=== PATIENT | female | born 1990 | race Caucasian/White ===

== ENCOUNTER 2017-07-11 01:22 | Emergency (ER) | payer SELFPAY ==
[~2017-07-11] VITALS: Ht 162.6 cm; Wt 56.8 kg
[2017-07-11 01:25] VITALS: TEMP 36.4; Ht 162.6 cm; Wt 56.8 kg
[2017-07-11] MEDS ORDERED: LIDOCAINE HCL 2% VISC SOLN 20 ML UDC PO STA (01:45)
[2017-07-11] MEDS ORDERED: ALUMINUM/MAGNESIUM SUSP 30 ML UDC PO STA (01:45)
[2017-07-11 01:51] VITALS: O2SAT 99
[2017-07-11 01:58] LABS: BASO % 0.4 %; BASO ABS # 0.04 K/uL (0-0.2); EOS % 1.6 %; EOS ABS # 0.15 K/uL (0-0.5); HEMATOCRIT 42.3 % (37-47); HEMOGLOBIN 15.7 g/dL (12.0-16.0); IG# 0.02 K/uL (0.00-0.02); LYMPH % 36.4 %; LYMPH ABS # 3.37 K/uL (1.2-3.4); MEAN CELL VOLUME 86.7 fL (80-100); MEAN CORPUSCULAR HEMOGLOBIN 32.2 pg (25-34); MEAN CORPUSCULAR HGB CONC 37.1 g/dl (32-36); MEAN PLATELET VOLUME 9.5 fL (7.4-10.4); MONO % 9.8 %; MONO ABS # 0.91 K/uL (0.11-0.59); NEUT % 51.6 %; NEUT ABS # 4.76 K/uL (1.4-6.5); PLATELET COUNT 287 K/uL (130-400); RED CELL DISTRIBUTION WIDTH CV 12.3 % (11.5-14.5); RED CELL DISTRIBUTION WIDTH SD 39.4 fL (36.4-46.3); WHITE BLOOD COUNT 9.25 K/uL (4.8-10.8)
[2017-07-11 02:05] LABS: ISTAT CREATININE 0.7 mg/dl (0.6-1.3); ISTAT IONIZED CALCIUM 1.18 mmol/l (1.12-1.32); ISTAT POTASSIUM 3.6 mEq/L (3.3-5.0)
[2017-07-11 02:20] LABS: ALBUMIN 4.1 gm/dl (3.4-5.0); CALCIUM 9.2 mg/dl (8.5-10.1); CREATININE 0.79 mg/dl (0.60-1.20); POTASSIUM 3.5 mmol/L (3.5-5.1)
[2017-07-11 02:23] LABS: TOTAL PROTEIN 8.3 gm/dl (6.4-8.2)
[2017-07-11] MEDS ORDERED: SUCRALFATE 1 GM/10 ML UDC PO STA (02:34)
[2017-07-11] MEDS ORDERED: PANTOprazole SOD 40 MG TAB PO STA (03:04)
[2017-07-11] MEDS ORDERED: PANT40TA PO (03:06)
--- NOTE | 2017-07-11 03:13 | EMERGENCY ROOM VISIT NOTE ---
History First contact with patient: 01:31 Chief Complaint: ABDOMINAL PAIN Stated Complaint: PAIN IN UPR ABOMEN AND BETWEEN SHOULDER BLADES Nursing Triage Summary: patient states around 1800 yesterday she developed bilateral should pain that then radiated toward her abdomen. patient states abdominal pain has worsened. denies any nausea/vomit. History of Present Illness The patient is a 27 year old female who presents to the Emergency Room with complaints of intermittent episodes of epigastric abdominal pain and mid back pain for the past few months described as discomfort, 6 out of 10. Patient drinks a lot of red bull. She smokes. Patient states she had sausage and fried potatoes last night for dinner. Patient states nothing makes it better or worse. Patient denies dyspnea, fever, chills, nausea, vomiting, diarrhea, black or blood in her stool, flank pain, urinary symptoms. No control. No recent travel. Review of Systems An 10 system review of systems was completed with positives and pertinent negatives listed in the HPI. Past Medical/Surgical History Medical Problems: (1) Idiopathic Scoliosis (2) Tobacco Use Disorder Surgical Problems: (1) History of delivery Family History Patient reports no known family medical history. Social History Smoking Status: Current Every Day Smoker Alcohol Use: none Drug Use: none Marital Status: in relationship Occupation Status: employed Current/Historical Medications Scheduled Pantoprazole (Protonix), 40 MG PO DAILY Physical Exam Vital Signs Date Time Temp Pulse Resp B/P (MAP) Pulse Ox O2 Delivery O2 Flow Rate FiO2 07/11/17 02:34 72 20 104/71 97 Room Air 07/11/17 01:51 99 Room Air 07/11/17 01:51 99 Room Air 07/11/17 01:25 36.4 99 20 112/63 100 Room Air Physical Exam VITALS: Vitals are noted on the nurse's note and reviewed by myself. Vital signs stable. GENERAL: Pleasant female, in no acute distress, nondiaphoretic, well-developed well-nourished. SKIN: The skin was without rashes, erythema, edema, or bruising. There is no tenting of the skin. Capillary reflex less than 2 seconds. HEAD: Normocephalic atraumatic. EARS: External auditory canals clear, tympanic membranes pearly zurita without erythema or effusion bilaterally. EYES: Pupils equal round and reactive to light and accommodation. Conjunctivae without injection, sclerae without icterus. Extraocular movements intact. NOSE: Patent, turbinates without inflammation or discharge. MOUTH: Mucous membranes moist. Pharynx without erythema or exudate. Uvula midline. Airway patent. Tongue does not deviate. NECK: Supple without nuchal rigidity. No JVD. HEART: Regular rate and rhythm without murmurs gallops or rubs. LUNGS: Clear to auscultation bilaterally without wheezes, rales or rhonchi. No dullness to percussion. No retractions or accessory muscle use. ABDOMEN: Positive bowel sounds x 4. Normal tympanic percussion. Soft, minimally tender epigastric region, no CVA tenderness, without masses or organomegaly. Mason sign negative. No guarding or rebound tenderness. MUSCULOSKELETAL: No muscle atrophy, erythema, or edema noted. NEURO: Patient was alert and oriented to person place and time. No focal neurological deficits. Medical Decision & Procedures Laboratory Results 07/11/17 01:30 Red Blood Count 4.88, Mean Corpuscular Volume 86.7, Mean Corpuscular Hemoglobin 32.2, Mean Corpuscular Hemoglobin Concent 37.1, Mean Platelet Volume 9.5, Neutrophils (%) (Auto) 51.6, Lymphocytes (%) (Auto) 36.4, Monocytes (%) (Auto) 9.8, Eosinophils (%) (Auto) 1.6, Basophils (%) (Auto) 0.4, Neutrophils # (Auto) 4.76, Lymphocytes # (Auto) 3.37, Monocytes # (Auto) 0.91, Eosinophils # (Auto) 0.15, Basophils # (Auto) 0.04 07/11/17 01:30 Test 07/11/17 01:30 07/11/17 01:49 07/11/17 01:52 White Blood Count 9.25 K/uL (4.8-10.8) Red Blood Count 4.88 M/uL (4.2-5.4) Hemoglobin 15.7 g/dL (12.0-16.0) Hematocrit 42.3 % (37-47) Mean Corpuscular Volume 86.7 fL (80-100) Mean Corpuscular Hemoglobin 32.2 pg (25-34) Mean Corpuscular Hemoglobin Concent 37.1 g/dl (32-36) Platelet Count 287 K/uL (130-400) Mean Platelet Volume 9.5 fL (7.4-10.4) Neutrophils (%) (Auto) 51.6 % Lymphocytes (%) (Auto) 36.4 % Monocytes (%) (Auto) 9.8 % Eosinophils (%) (Auto) 1.6 % Basophils (%) (Auto) 0.4 % Neutrophils # (Auto) 4.76 K/uL (1.4-6.5) Lymphocytes # (Auto) 3.37 K/uL (1.2-3.4) Monocytes # (Auto) 0.91 K/uL (0.11-0.59) Eosinophils # (Auto) 0.15 K/uL (0-0.5) Basophils # (Auto) 0.04 K/uL (0-0.2) RDW Standard Deviation 39.4 fL (36.4-46.3) RDW Coefficient of Variation 12.3 % (11.5-14.5) Immature Granulocyte % (Auto) 0.2 % Immature Granulocyte # (Auto) 0.02 K/uL (0.00-0.02) Est Creatinine Clear Calc Drug Dose 93.2 ml/min Estimated GFR () 119.7 Estimated GFR (Non- 103.3 BUN/Creatinine Ratio 14.7 (10-20) Calcium Level 9.2 mg/dl (8.5-10.1) Total Bilirubin 0.4 mg/dl (0.2-1) Direct Bilirubin 0.1 mg/dl (0-0.2) Aspartate Amino Transf (AST/SGOT) 12 U/L (15-37) Alanine Aminotransferase (ALT/SGPT) 20 U/L (12-78) Alkaline Phosphatase 85 U/L (45-117) Total Protein 8.3 gm/dl (6.4-8.2) Albumin 4.1 gm/dl (3.4-5.0) Lipase 155 U/L (73-393) Human Chorionic Gonadotropin, Qual NEG (NEG) Bedside D-Dimer 180 ng/mlFEU (0-450) Bedside Troponin I < 0.030 ng/ml (0-0.045) Bedside Hemoglobin 16.0 g/dl (12.0-16.0) Bedside Hematocrit 47 % (37-47) Bedside Sodium 144 mEq/L (135-144) Bedside Potassium 3.6 mEq/L (3.3-5.0) Bedside Chloride 104 mEq/L (101-112) Bedside Total CO2 27 mEq/l (24-31) Anion Gap 18.0 mmol/L (16-25) Bedside Blood Urea Nitrogen 12 mg/dl (7-18) Bedside Creatinine 0.7 mg/dl (0.6-1.3) Bedside Glucose (other) 98 mg/dl (70-99) Bedside Ionized Calcium (Tierra) 1.18 mmol/l (1.12-1.32) Medications Administered Medications (Trade) Dose Ordered Sig/Zacarias Route Start Time Stop Time Status Last Admin Dose Admin Lidocaine HCl (Viscous Lidocaine 2% Soln) 10 ml NOW STAT PO 07/11/17 01:45 07/11/17 01:46 DC 07/11/17 01:45 10 ML Al Hydroxide/Mg Hydroxide (Maalox Susp) 30 ml NOW STAT PO 07/11/17 01:45 07/11/17 01:46 DC 07/11/17 01:45 30 ML Sucralfate (Carafate Susp) 1 gm NOW STAT PO 07/11/17 02:34 07/11/17 02:35 DC 07/11/17 02:56 1 GM ED Course Prior records/ancillary studies reviewed. Triage Nursing notes reviewed. Additional history obtained from friend. The patient's history was concerning for epigastric abdominal pain. Differential diagnosis: Etiologies such as appendicitis, PE, cardiac, diverticulitis, PUD, biliary pathology, UTI, pancreatitis, obstruction, mesenteric ischemia, aortic pathology , infections, inflammatory bowel disease, renal colic, as well as others were entertained. Physical examination findings: As above. ER treatment provided: GI cocktail, Carafate On reassessment the patient felt better. Diagnostics interpreted by me: ECG: Normal sinus, normal intervals, no acute ST-T wave changes. Impression normal sinus rhythm and treated by myself The labs revealed negative d-dimer. Negative troponin. Negative hCG. Stable H &H Imaging studies: Chest x-ray with no acute consolidation, pneumothorax free of my interpretation Exam and history seem consistent with epigastric discomfort most likely related to gastritis. Patient felt much better after being medicated as above. She has had several episodes in the past. She drinks a lot of red bull. She smokes. She was advised to take medicines as directed and to follow-up family care in a few days or here in the ER sooner for abdominal pain, chest pain, difficulty breathing, worsening sinus symptoms or as needed. Patient had a normal EKG. A negative troponin. A negative d-dimer. She was advised to see GI if symptoms persist after taking the PPI for 2 weeks for rule out ulcer or H. pylori infection or any other worsening signs or symptoms. By the evaluation outlined above emergent etiologies such as appendicitis, diverticulitis, PUD, biliary pathology, UTI, pancreatitis, obstruction, mesenteric ischemia, aortic pathology, infections, inflammatory bowel disease, renal colic, as well as others were deemed relatively unlikely. The pt informed about the findings as listed above. All questions were answered and pleased with the treatment. Return instructions were outlined and the patient was discharged in stable condition. Outpatient prescription management: Protonix Referral: The patient was referred back to their primary care physician for follow-up in 2 to 3 days for a recheck of the current condition. Case reviewed with my Attending. 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 Additional Instructions Protonix 40 m tablet daily for next 2 weeks. Take this on an empty stomach. Try Maalox or Zantac for breakthrough symptoms for reflux. Avoid large meals. Avoid acidic foods. Rest and drink plenty of fluids as tolerated. Continue current medications. Avoid strenuous activities and anything that worsens your pain. Resume normal activities once your symptoms resolve. Return to the ER immediately for worsening or persistent chest pain, abdominal pain, black or blood in your stools, vomiting, fevers, chest pains, difficulty breathing, worsening of your condition, or as needed. Follow up with your primary physician in 2-3 days for a recheck of your current condition. Work Instructions Return To Work: 2 days
[2017-07-11 03:23] VITALS: BP 105/72; PULSE 75; O2SAT 99
--- NOTE | 2017-07-11 07:06 | DIAGNOSTIC IMAGING REPORT ---
SINGLE VIEW CHEST CLINICAL HISTORY: Epigastric abdominal pain. Atypical chest pain. FINDINGS: An AP, portable, upright chest radiograph is compared to study dated 01/22/2016. The examination is degraded by portable technique and patient rotation. The cardiomediastinal silhouette is unremarkable. The lungs and pleural spaces are clear. No pneumothorax is seen. The bony thorax is grossly intact. IMPRESSION: No active disease in the chest. Electronically signed by: Ramiro Jurado M.D. 07/11/2017 7:05 AM Dictated Date/Time: 07/11/2017 7:05 AM
== END 2017-07-11 03:26 | disposition home or self-care (01) ==
LOC: C.EDB 01:23 → C.EDA 03:26
DX: R10.13 Epigastric pain (principal); M41.20 Other idiopathic scoliosis, site unspecified; F17.200 Nicotine dependence, unspecified, uncomplicated

== ENCOUNTER 2024-07-08 21:03 | Inpatient (IN) ==
[2024-07-08] MEDS: LACTATED RINGER'S 1,000 ML IV ONE (22:13)
[2024-07-08] MEDS: LACTATED RINGER'S 1,000 ML IV SCH (23:14)
--- NOTE | 2024-07-08 23:20 | History & Physical Report ---
Date of Service July 08, 2024 Assessment & Plan (1) Uterine contractions: (2) Gestational diabetes, diet controlled: (3) Previous delivery affecting : (4) Request for sterilization: Plan 34 yo at 38 5/7 wga presents in early labor VSS Fetus cat 1 Labor - Discussed indications, risks, benefits, alternatives with risks including infection, bleeding, injury to adjacent structures (bowel, bladder, ureters, blood vessels, nerves, baby), possible need for blood transfusion and/or life saving hysterectomy, VTE. Consent reviewed in detail w/ pt and signed after all questions answered to her satisfaction. Discussed specific risk of regret with tubal ligation and pt desires to proceed. -will order ancef and azithro for antibx History of Present Illness Chief Complaint: ctx Primary Care Provider: Ry Urbina, 34 yo at 38 5/7 wga presented w/ ctx increasing in frequency and intensity. q5-6 min on arrival and painful. She was given IVF which decreased frequency but intensity continued to worsen. 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 G2 2011 30 wks rCS G3 current denies hx stis Allergies Allergy/AdvReac Type Severity Reaction Status Date / Time codeine AdvReac Intermediate Severe Verified 07/03/24 07:31 Nausea and Vomiting hydrocodone AdvReac Intermediate Vomiting Verified 07/07/24 15:10 Home Medications Medication Instructions Recorded Confirmed Type sertraline 100 mg tablet 100 mg PO HS 07/03/24 07/08/24 History vits no.124-ferrous fum 1 tab DAILY 07/08/24 07/08/24 History 27 mg iron-folic acid 800 mcg tablet ( Vitamin) Patient History Medical History (Updated 07/08/24 @ 23:17 by Lenora Fajardo MD) History of chicken pox As child Gestational diabetes, diet controlled (04/2024) Failed 1hr, declines 2hr, accepts dx History of palpitations (2020) s/p unremarkable holtor monitor x 1 week occasoinal (monthly) palpitations Abnormal Pap smear of cervix Vitamin D deficiency Anxiety and depression Idiopathic scoliosis Surgical History History of delivery x2 Family History Mother Diabetes Hypertension Stroke Aunt Diabetes Hypertension Uncle Diabetes Hypertension Myocardial infarction, Onset Age: 49 Grandmother (Maternal) Diabetes Hypertension Grandfather (Maternal) Myocardial infarction, Onset Age: 50 Hypertension Brother Myocardial infarction, Onset Age: 26 Hypertension Denies family history of Ovarian cancer Prostate cancer Breast cancer Colorectal cancer Social History Smoking Status: Current every day smoker Tobacco Type: E-cigarettes / Vaping Cigarettes Per Day: vapes daily (advised); Second Hand Exposure: No; Do You Dip or Chew Tobacco: No; Tobacco Cessation Education Requested by Patient: No Hx Alcohol Use: No Hx Substance Use: No Preferred Language: Kuwaiti Communication Ability: Effective Visual Impairment: Limited 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 Beliefs That Will Affect Care: None marital status: marital status details: REX Padilla (22) [phone] Current Living Situation: Family and Significant Other Current Living Situation Comment: 15 and 12 year old sons and FOB current occupational status: employed current occupation: [employer] How many Children do You have: 2 Other Information That Helps Us Care for You: No Feels Safe at Home: Yes Safety Concerns: Feels Safe At This Time caffeine: Yes (redbull) Dental Care, Regularly: Yes Physical Activity Frequency: Daily Physical Activity Frequency Comment: working Seatbelt Use: always Sunscreen Use: No Assistive Devices: None Physical Exam Genitourinary: OB Exam Monitor Tracing: + external FHT monitor used, + external uterine monitor used (q3-6) and + category I (130/mod/-accel/-decel) Results & Data Vital Signs (Past 12 Hours) Vital Signs Temp Pulse Resp BP 07/08/24 21:27 81 07/08/24 21:27 124/79 07/08/24 21:21 98.1 F 18 07/08/24 21:18 83 151/73 H Laboratory Results OB Labs: Blood Type O Negative 12/18/23 Antibody Screen NEGATIVE 04/30/24 Hgb 11.3 g/dl (12.0-16.0) L 05/23/24 Hct 31.2 % (37.0-47.0) L 05/23/24 MCV 84.6 fL (80.0-100.0) 05/23/24 Plt Count 284 K/uL (130-400) 05/23/24 Rubella IgG Antibody Immune (Immune) 12/18/23 Treponema pallidum Ab Negative (Negative) 04/30/24 Hep Bs Antigen Negative (Negative) 12/18/23 Hepatitis C Antibody Negative (Negative) 12/18/23 HIV 1&2 Ab/P24 Ag 4thGn Negative (Negative) 12/18/23 Glucose 1 Hr 50 gm 183 mg/dl (70-130) H 01/30/24 Maternal Serum AFP 35.7 ng/mL 01/30/24 OB Optional Labs: Chlamydia trachomatis RNA Not Detected (NotDetected) 12/18/23 Neisseria gonorrhoeae RNA Not Detected (NotDetected) 12/18/23 Thyroid Stimulating Hormone (TSH) 0.793 uIu/ml (0.300-4.500) 02/20/21 Alpha Fetoprotein Triple Screen SEE NOTE 01/30/24 Labs Reviewed: neg horizon--[facility] low risk panorama--[facility] gbs neg Diagnostic Findings 06/18 EFW 49%, AC 45%, DVP wnl, L lat plac Coding Level of Care Code None Diagnoses Uterine contractions O47.9 Gestational diabetes, diet controlled O24.410 Previous delivery affecting O34.219 Request for sterilization Z30.2
[2024-07-08] MEDS ORDERED: AZITHROMYCIN 500 MG in SODIUM CHLORIDE 0.9% 250 ML IV SCH (23:31)
[2024-07-08] MEDS ORDERED: SODIUM CHLORIDE 0.9% 100 ML IV PRN (23:42)
[2024-07-08] MEDS ORDERED: SODIUM CHLORIDE 0.9% 50 ML IV PRN (23:42)
[2024-07-08] MEDS: ACETAMINOPHEN 500 MG TAB PO ONE (23:51)
[2024-07-08] MEDS: AZITHROMYCIN 250 MG TAB PO STA (23:57)
[2024-07-09] LABS: Hematocrit (blood only) 34.9 % (37.0-47.0); Mean Corpuscular Hgb Conc 34.4 g/dL (32.0-36.0); Mean Corpuscular Volume 81.4 fL (80.0-100.0); Mean Platelet Volume 9.3 fL (9.4-12.4); Platelet Count 255 K/uL (130-400); RDW Coefficient of Variation 13.7 % (11.5-14.5); RDW Standard Deviation 39.8 fL (36.4-46.3); Red Blood Count 4.29 M/uL (4.20-5.40); White Blood Count 10.07 K/ul (4.8-10.8)
[2024-07-09] MEDS: ACETAMINOPHEN 325 MG TAB ONE (00:02)
[2024-07-09] MEDS: CITRIC ACID/SODIUM CITRATE 15 ML UDC ONE (00:03)
--- NOTE | 2024-07-09 00:21 | Anesthesiology Consultation ---
Date of Service July 09, 2024 Assessment & Plan Chart Review Chart Review: Acceptable Risk for Surgery and Patient NOT seen in Pre Admission Testing Consults Requested none ASA ASA2 Proposed Anesthesia Anesthesia Type: Spinal (+intrathecal narcotics) Risk / Benefits Reviewed With: PT / POA / Parent / Guardian, Accepts Plan and Informed Consent Obtained History Surgery Operation Date: 07/08/24 23:20 Proposed Procedures p Section in LD - Lenora Fajardo MD Height/Weight Height: 5 ft 5 in Weight: 74.389 kg Allergies Allergy/AdvReac Type Severity Reaction Status Date / Time codeine AdvReac Intermediate Severe Verified 07/03/24 07:31 Nausea and Vomiting hydrocodone AdvReac Intermediate Vomiting Verified 07/07/24 15:10 Medications Home Medications Medication Instructions Recorded Confirmed Last Taken sertraline 100 mg tablet 100 mg PO HS 07/03/24 07/08/24 07/07/24 22:00 vits no.124-ferrous fum 1 tab DAILY 07/08/24 07/08/24 Unknown 27 mg iron-folic acid 800 mcg tablet ( Vitamin) Active Medications Generic Name Dose Route Start Last Admin Trade Name Freq PRN Reason Stop Dose Admin Lactated Ringer's 1,000 mls @ 125 mls/hr 07/09/24 00:15 07/08/24 23:14 Lr IV 07/09/24 23:08 125 mls/hr .Q8H JAVED Administration NPO Date Last Intake of Fluids: 07/08/24 Time Last Intake of Fluids: 22:00 Date Last Intake of Solids: 07/08/24 Time Last Intake of Solids: 13:00 Past Medical History Medical History (Updated 07/08/24 @ 23:17 by Lenora Fajardo MD) History of chicken pox As child Gestational diabetes, diet controlled (04/2024) Failed 1hr, declines 2hr, accepts dx History of palpitations (2020) s/p unremarkable holtor monitor x 1 week occasoinal (monthly) palpitations Abnormal Pap smear of cervix Vitamin D deficiency Anxiety and depression Idiopathic scoliosis Exercise / Class Metabolic Activity II 4-5 Yardwork/Stairs/Walk up hill Past Family History Family History Mother Diabetes Hypertension Stroke Aunt Diabetes Hypertension Uncle Diabetes Hypertension Myocardial infarction, Onset Age: 49 Grandmother (Maternal) Diabetes Hypertension Grandfather (Maternal) Myocardial infarction, Onset Age: 50 Hypertension Brother Myocardial infarction, Onset Age: 26 Hypertension Denies family history of Ovarian cancer Prostate cancer Breast cancer Colorectal cancer Past Surgical History Surgical History History of delivery x2 Past Anesthesia History No Hx of Anesthesia Complications and No Family Hx of Anesthesia Complications History of PONV No Hx of PONV and No Hx of Motion Sickness Social History Smoking Status: Current every day smoker Smoking cigarettes per day: vapes daily (advised) Do You Dip or Chew Tobacco: No Hx Alcohol Use: No Hx Substance Use: No substance use type: does not use Physical Exam Vital Signs Last Vital Signs Temp 36.7 C 07/08/24 23:55 Pulse 85 07/09/24 00:06 Resp 18 07/08/24 21:21 BP 112/56 L 07/09/24 00:06 ENMT Mouth: no dentition abnormality Thyromental Distance: > or= 3.5 Finger Breadths Mallampati Class: II Neck normal visual inspection Respiratory normal respiratory effort Auscultation: lungs clear to auscultation bilaterally Cardiovascular Rate/Rhythm: regular rate and regular rhythm Psychiatric Orientation: alert Testing Laboratory Results 07/08/24 23:32 07/08/24 22:05 POC Glucose 100 H
[2024-07-09] MEDS: CITRIC ACID/SODIUM CITRATE 15 ML UDC PO SCH (00:24)
[2024-07-09] MEDS: ceFAZolin 2000MG 2,000 MG/15 ML SYR IV ONE (00:26)
[2024-07-09] MEDS ORDERED: MoRPHine SULFATE PF 1 MG/ML 10 ML AMP/VIAL ONE (00:28)
[2024-07-09] MEDS ORDERED: OXYTOCIN 10 UNITS/ML VIAL ONE ×3 (00:52→01:02)
[2024-07-09] MEDS ORDERED: PHENYLEPHRINE HCL 10 MG/ML VIAL ONE (01:02)
[2024-07-09] MEDS ORDERED: ONDANSETRON INJ 2 MG/ML 2 ML VIAL ONE (01:02)
[2024-07-09] MEDS: LACTATED RINGER'S 1,000 ML IV SCH (01:25)
--- NOTE | 2024-07-09 02:07 | Operative Report ---
Post Operative Report Pre & Post Diagnosis Operation Date: 07/08/24 23:20 Pre-Op Diagnosis: Single intrauterine at 38 6/7 wga Labor CSx2 Desires sterilization A1GDM Post-Op Diagnosis: same Delivered I identified the patient and participated in the time-out.: Yes Procedure Operation Date: 07/08/24 23:20 Actual Procedures p Repeat Low Transverse Section, Bilateral Salpingectomy in LD - Lenora Fajardo MD Surgeon Lenora Fajardo MD Supervisor Ride Assembly PRATEEK Bro Quantitative Blood Loss (QBL) 450 Findings Consistent with Post-Op Diagnosis Normal appearing uterus, bilateral fallopian tubes and ovaries. Viable female with APGARs of 7 and 9 Fluids UOP 200cc by arias catheter Specimens Placenta, cord blood Drains Arias draining clear urine Anesthesia Type Spinal Complications none Disposition Accompanied Patient To Recovery: Yes Disposition: L&D Indications 34 yo at 38 6/7 wga presented with contractions and found to be in early labor. Decision was made to proceed with delivery and she desired permanent sterilization Description of Procedure The patient was taken to the operating room after consents were ensured. The patient was properly identified. Spinal anesthesia was obtained without d ifficulty. The patient was placed in a dorsal supine position with left lateral tilt, then prepped and draped in normal sterile fashion. Surgical time out was performed. Antibiotics were given for prophylaxis. Anesthesia was tested to ensure adequate surgical levels. Pfannenstiel skin incision was performed and carried down to the underlying fascia with a knife. The fascia was then nicked in the midline and extended laterally with pickups and Shepard scissors. Superior portion of the fascia was grasped with Kochers x2 and elevated off the underlying rectus muscles using blunt dissection. Inferior portion of the fascia was then grasped with Pablo clamps x2 and also elevated off the underlying muscles with blunt dissection. Midline was identified. The peritoneum was then entered and extended to provide adequate room for delivery of baby. A hand was inserted into the abdomen, uterus was noted to be clear of adhesions. Bladder blade was inserted, bladder flap was created in the usual fashion. A low transverse uterine incision was made in the uterus and extended bluntly in a superior to inferior fashion. Amniotomy was made with clear fluid at the time of rupture. head was grasped and elevated through the hysterotomy in an atraumatic fashion. The baby delivered in CAITY position, nuchal cord was reduced. Remainder of the body delivered without incident. Nose and mouth were bulb suctioned on the surgical field. The cord was double clamped and cut, baby was handed off to awaiting pediatrics staff. Cord segment and blood were obtained. Placenta was then expressed from the uterus. The uterus was exteriorized. Several passes were made inside the uterus to remove the remaining membranes. Attention was then turned to the hysterotomy, which was then closed with a running locked suture of 0 Vicryl on a CTX needle. An imbricating layer was then performed using 0-Monocryl. There was noted to be good hemostasis. The posterior cul-de-sac was then inspected and cleaned of clot and debris. The hysterotomy was again inspected and noted to be hemostatic. Attention was turned to sterilization portion of procedure. Right fallopian tube was followed out to fimbriated end. Ligasure device was used to excise tube to cornua and handed off for pathology. There was excellent hemostasis. The same procedure was performed on the contralateral side. Both tubal sites and hysterotomy were again hemostatic. The uterus was returned to the abdomen. The right and left pericolic gutters were cleaned of all clot and debris. The hysterotomy was again noted to be hemostatic. Tubal sites hemostatic. Space of Retzius was noted to be hemostatic. The fascia was then closed with a running suture of 0 Vicryl on a CT1 needle. Subcutaneous tissue was copiously irrigated and noted to be hemostatic. Subcutaneous tissue was re-approximated using 2-0 plain gut. The skin was then closed with a running suture of 3-0 Monocryl in a subcuticular fashion. At termination of the procedure, fundal pressure was applied and a moderate amount of lochia was expressed. Pressure dressing was applied to the patient. She tolerated the procedure well. All sponge, needle, instrument counts were correct x 2. I attest to the content of the Intraoperative Record and any orders documented therein. Any exceptions are noted below. OB Procedure Charges [id number] Add on Tubal for C/S
[2024-07-09] MEDS ORDERED: HYDROmorphone INJ 0.5 MG/0.5 ML SYR IV PRN ×2 (02:18→20:18)
[2024-07-09] MEDS ORDERED: ePHEDrine sulfate 50 MG/ML AMP IV PRN (02:18)
[2024-07-09] MEDS ORDERED: MoRPHine SULFATE 2 MG/ML CARP IV PRN (02:18)
[2024-07-09] MEDS ORDERED: diphenhydrAMINE 50 MG/ML VIAL IV PRN ×2 (02:18→20:18)
[2024-07-09] MEDS ORDERED: NALOXONE HCL 1 MG in SODIUM CHLORIDE 0.9% 1,000 ML IV PRN (02:18)
[2024-07-09] MEDS ORDERED: MoRPHine SULFATE PF 1 MG/ML 10 ML AMP/VIAL INT SPINAL ONE (02:18)
[2024-07-09] MEDS ORDERED: NALBUPHINE HCL INJ 10 MG/ML AMP IV PRN (02:18)
[2024-07-09] MEDS ORDERED: oxyCODONE HCL IR 5 MG TAB (IMMEDIATE RELEASE) PO PRN ×2 (02:18→20:18)
[2024-07-09] MEDS ORDERED: NALOXONE HCL 0.08 MG in SYRINGE 1.8 ML IV PRN (02:18)
[2024-07-09] MEDS ORDERED: MEPERIDINE HCL 25 MG/ML CARP/VIAL IV PRN (02:18)
[2024-07-09] MEDS ORDERED: NALOXONE HCL 0.4 MG/1 ML VIAL/CARP IV PRN (02:18)
--- NOTE | 2024-07-09 02:21 | Anesthesiology Progress Note ---
Date of Service July 09, 2024 Anesthesia Post Procedure Vital Signs Vital Signs: Temp Pulse Resp BP 07/09/24 02:09 75 105/66 07/09/24 00:06 85 112/56 L 07/08/24 23:55 36.7 C 07/08/24 21:27 81 07/08/24 21:27 124/79 07/08/24 21:21 36.7 C 18 07/08/24 21:18 83 151/73 H Transfer of Care Handoff Completed per policy Notes Mental Status: alert / awake / arousable Nausea / Vomiting: adequately controlled Pain: adequately controlled Airway Patency, RR, SpO2: stable & adequate BP & HR: stable & adequate Hydration State: stable & adequate Neuraxial Anesthesia: was administered and sensory block is resolving Anesthetic Complications: no major complications apparent and Pt Satisfied with anesthetic care
[2024-07-09] MEDS ORDERED: SODIUM CHLORIDE 0.9% 1,000 ML IV SCH (02:28)
[2024-07-09] MEDS ORDERED: CALCIUM CARBONATE 500 MG CHEWABLE TAB PO PRN (02:28)
[2024-07-09] MEDS ORDERED: LACTATED RINGER'S 1,000 ML IV SCH (02:28)
[2024-07-09] MEDS ORDERED: SENNA 8.6 MG TAB PO PRN (02:28)
[2024-07-09] MEDS ORDERED: BENZOCAINE 20% SPRY 85 APPLN/85 GM CAN EXT PRN (02:28)
[2024-07-09] MEDS ORDERED: HYDROCORTISONE ACETATE 25 MG SUPP PR PRN (02:28)
[2024-07-09] MEDS ORDERED: DC INTRASPINAL MORPHINE SCH (02:30)
[2024-07-09] MEDS ORDERED: NO NARCOTICS OR SEDATIVES SCH (02:30)
[2024-07-09] MEDS: KETOROLAC 30 MG/ML VIAL IV SCH (02:42)
[2024-07-09] MEDS: KETOROLAC 30 MG/ML VIAL ONE (02:43)
[2024-07-09] MEDS: DIPHTHER/TETAN/PERTUS Vaccine (Tdap, Adol/Adult) 0.5mL IM ONE (04:41)
[2024-07-09] MEDS: OXYTOCIN 20 UNITS/LR 1,002 ML IV SCH (04:42)
[2024-07-09] MEDS: ONDANSETRON INJ 2 MG/ML 2 ML VIAL IV PRN (05:56)
[2024-07-09] MEDS ORDERED: ceFAZolin 2000MG 2,000 MG/15 ML SYR IV SCH (06:00)
[2024-07-09] MEDS ORDERED: ACETAMINOPHEN 500 MG TAB PO SCH (06:00)
[2024-07-09] MEDS ORDERED: AZITHROMYCIN 500 MG in SODIUM CHLORIDE 0.9% 250 ML IV SCH (06:00)
[2024-07-09] MEDS ORDERED: CITRIC ACID/SODIUM CITRATE 15 ML UDC PO SCH (06:00)
[2024-07-09] MEDS: SIMETHICONE 80 MG CHEW PO SCH (09:28)
[2024-07-09] MEDS: DOCUSATE SODIUM 100 MG CAP PO SCH (09:28)
[2024-07-09] MEDS: PRENATAL VITAMIN 1 TAB PO SCH (09:28)
[2024-07-09] MEDS: ACETAMINOPHEN 325 MG TAB PO SCH (09:29)
[2024-07-09] MEDS: PROMETHAZINE 6.25 MG/50.25 ML BAG IV PRN (09:45)
[2024-07-09] MEDS: FERROUS SULFATE 325 MG TAB PO SCH (11:35)
[2024-07-09] MEDS ORDERED: diphenhydrAMINE Capsule 25 MG CAP PO PRN (20:18)
[2024-07-09] MEDS ORDERED: PROMETHAZINE 12.5 MG/50.5 ML BAG IV PRN (20:18)
[2024-07-09] MEDS ORDERED: ONDANSETRON INJ 2 MG/ML 2 ML VIAL IV PRN (20:18)
[2024-07-09] MEDS ORDERED: Nursing to Pharmacy Communication SCH (22:15)
[2024-07-10] MEDS: IBUPROFEN 600 MG TAB PO SCH (00:23)
[2024-07-10] MEDS: SERTRALINE HCL 100 MG TABLET PO SCH (02:00)
[2024-07-10] MEDS ORDERED: KETOROLAC 30 MG/ML VIAL IV PRN (02:30)
[2024-07-10] MEDS ORDERED: IBUPROFEN 600 MG TAB PO SCH ×2 (03:00→21:00)
--- NOTE | 2024-07-10 06:51 | Obstetrical Progress Note ---
Date of Service <Junior Iniguez MD - Last Filed: 07/10/24 07:26> July 10, 2024 Assessment & Plan <Junior Iniguez MD - Last Filed: 07/10/24 07:26> (1) care and examination: POD#1 s/p rLTCS + BTL at 38 6/7 wga Stable. Rh- s/p Rhogam 04/30/24, gbs neg, ri Vitals wnl, CBC pending Continue routine care, diet as tolerated Goals for today: work on ambulation & showering <Carrie Thurston MD, FACOG - Last Filed: 07/10/24 19:45> (1) care and examination: Subjective <Junior Iniguez MD - Last Filed: 07/10/24 07:26> Patient is a 34 y/o female who is POD#1 following delivery at 38 6/7 wga. Mild abd pain/cramping, well managed on analgesics Voiding w/o issue Tolerating meals, no n/v Some concerns ambulating, showering Passing gas, BM x1 Having appropriate lochia Planning to breastfeed. Constitutional: no fever, no chills or no sweats Respiratory: no dyspnea Cardiovascular: no chest pain, no palpitations or no calf pain Breast: no breast pain Gastrointestinal: no nausea or no vomiting Genitourinary (female): no dysuria Neurologic: no headache(s) no changes in vision, no headaches Physical Exam <Junior Iniguez MD - Last Filed: 07/10/24 07:26> General: Alert, oriented. No acute distress. Cardiac: Regular rate and rhythm, no murmurs, rubs, or gallops. Respiratory: Clear to auscultation bilaterally. No increased work of breathing. Symmetrical chest rise. No respiratory distress. Abdomen: Soft, nontender, nondistended. Bowel sounds present. Uterus: Uterine fundus firm, nontender, surgical scar clean and healing well. Lower extremities: No lower extremity edema or swelling. No deep calf pain. Results & Data <Junior Iniguez MD - Last Filed: 07/10/24 07:26> Vital Signs (Past 12 Hours) Vital Signs Temp Pulse Resp BP Pulse Ox O2 Del Method 07/10/24 00:10 36.4 C L 91 H 18 111/73 97 Room Air 07/09/24 20:30 18 98 07/09/24 19:15 18 98 07/09/24 19:15 36.3 C L 101 H 18 112/78 98 Room Air Supervising Physician <Carrie Thurston MD, FACOG - Last Filed: 07/10/24 19:45> Co-Signing Physician Notes Resident Physician Supervision Note: I interviewed and examined the patient. Discussed with Dr. Iniguez and agree with findings and plan as documented in the note. Any exceptions or clarifications are listed here: Patient seen and rounded on this am with the resident. Marcio 1.5 s/p c/s . doing well. Routine care. was able to void after receiving narcan. No issues with voiding at this time. Documented By: Carrie Thurston MD, FACOG Resident Activity Tracking <Junior Iniguez MD - Last Filed: 07/10/24 07:26> Resident Involvement: Resident Care Provided Care Provided: Adult Hospital Medicine
[2024-07-10 07:28] LABS: Basophils # (auto) 0.03 K/uL (0.00-0.20); Basophils % (auto) 0.2 %; Eosinophils # (auto) 0.02 K/uL (0.00-0.50); Eosinophils % (auto) 0.1 %; Hematocrit (blood only) 26.2 % (37.0-47.0); Immature Granulocytes # (auto) 0.08 K/uL (0.01-0.20); Immature Granulocytes % (auto) 0.5 %; Lymphocytes # (auto) 0.91 K/uL (1.20-3.40); Lymphocytes % (auto) 5.9 %; Mean Corpuscular Hgb Conc 34.4 g/dL (32.0-36.0); Mean Corpuscular Volume 81.6 fL (80.0-100.0); Mean Platelet Volume 9.1 fL (9.4-12.4); Monocytes # (auto) 0.84 K/uL (0.11-0.59); Monocytes % (auto) 5.5 %; Neutrophils # (auto) 13.52 K/uL (1.40-6.50); Neutrophils % (auto) 87.8 %; Platelet Count 183 K/uL (130-400); RDW Coefficient of Variation 14.2 % (11.5-14.5); RDW Standard Deviation 41.2 fL (36.4-46.3); Red Blood Count 3.21 M/uL (4.20-5.40)
[2024-07-10] MEDS: bisacodyL 10 MG SUPP PR STA (13:21)
[2024-07-10] MEDS: bisacodyL 5 MG TABEC PO SCH (20:34)
[2024-07-11] MEDS ORDERED: bisacodyL 10 MG SUPP PR PRN
[2024-07-11] MEDS ORDERED: IBUPROFEN 600 MG TAB PO PRN (02:30)
--- NOTE | 2024-07-11 06:46 | Obstetrical Progress Note ---
Date of Service <Junior Iniguez MD - Last Filed: 07/11/24 07:54> July 11, 2024 Assessment & Plan <Junior Iniguez MD - Last Filed: 07/11/24 07:54> (1) care and examination: POD#2 s/p rLTCS + BTL at 38 6/7 wga Stable. Rh- s/p Rhogam 04/30/24, gbs neg, ri AFVSS, CBC pending but WBC yesterday was 15.40 Try clear liquid diet today for some bowel rest. Continue daily colace & simethicone qid. Dulcolax, senna, milk of mag, zofran PRN Avoid opioids. Stop ferrous sulfate Continue routine care, working on ambulation and pain control <Xena Loera MD, FACOG - Last Filed: 07/11/24 08:34> (1) care and examination: Subjective <Junior Iniguez MD - Last Filed: 07/11/24 07:54> Patient is a 34 y/o female who is POD#2 following delivery at 38 6/7 wga. 4/10 abd pain/cramping, which does improve w tylenol & motrin. Reports some gas pains since yesterday. Only mild improvement w simethicone. Needed dulcolax suppository to have BM, which she describes as soft but required straining d/t her feeling no urge. No unsteadiness or lightheadedness w ambulation but pain does increase to ~7/10 She was able to shower w/o issue Voiding, eating, drinking normally Having appropriate lochia Planning to breastfeed. Constitutional: no fever, no chills or no sweats Respiratory: no dyspnea Cardiovascular: no chest pain, no palpitations or no calf pain Breast: no breast pain Gastrointestinal: + abdominal pain, + bloating and + nausea; no vomiting Genitourinary (female): no dysuria Neurologic: no headache(s) Physical Exam <Junior Iniguez MD - Last Filed: 07/11/24 07:54> General: Alert, oriented. No acute distress. Cardiac: Regular rate and rhythm, no murmurs, rubs, or gallops. Respiratory: Clear to auscultation bilaterally. No increased work of breathing. Symmetrical chest rise. No respiratory distress. Abdomen: Soft, normoactive bowel sounds, +tenderness compared to prior exams (initially epigastric, more diffuse on repeat exam), no tympany, rebound, or guarding Uterus: Uterine fundus firm, surgical scar clean and healing well. Lower extremities: No lower extremity edema or swelling. No deep calf pain. Results & Data <Junior Iniguez MD - Last Filed: 07/11/24 07:54> Vital Signs (Past 12 Hours) Vital Signs Temp Pulse Resp BP Pulse Ox O2 Del Method 07/10/24 23:01 36.5 C 91 H 18 113/75 100 Room Air 07/10/24 20:30 Room Air 07/10/24 19:09 36.6 C 94 H 16 103/66 97 Room Air Laboratory Results 07/10/24 06:52 Supervising Physician <Xena Loera MD, FACOG - Last Filed: 07/11/24 08:34> Co-Signing Physician Notes Resident Physician Supervision Note: I interviewed and examined the patient. Discussed with Dr. Iniguez and agree with findings and plan as documented in the note. Any exceptions or clarifications are listed here: [None] Documented By: Xena Loera MD, FACOG Resident Activity Tracking <Junior Iniguez MD - Last Filed: 07/11/24 07:54> Resident Involvement: Resident Care Provided Care Provided: Adult Hospital Medicine
[2024-07-11 07:45] VITALS: RESP 16
[2024-07-11 08:42] LABS: Hematocrit (blood only) 24.4 % (37.0-47.0); Hemoglobin 8.3 g/dl (12.0-16.0); Mean Corpuscular Hemoglobin 28.7 pg (25.0-34.0); Mean Corpuscular Volume 84.4 fL (80.0-100.0); Mean Platelet Volume 9.1 fL (9.4-12.4); Platelet Count 225 K/uL (130-400); RDW Coefficient of Variation 14.3 % (11.5-14.5); RDW Standard Deviation 43.9 fL (36.4-46.3); Red Blood Count 2.89 M/uL (4.20-5.40); White Blood Count 11.95 K/ul (4.8-10.8)
[2024-07-11] MEDS: IBUPROFEN 600 MG TAB PO PRN (10:07)
[2024-07-11] MEDS: ACETAMINOPHEN 325 MG TAB PO PRN (10:46)
[2024-07-11] MEDS: MAGNESIUM HYDROXIDE SUSP 30 ML UDC PO PRN (10:48)
--- NOTE | 2024-07-11 14:35 | CT Scan Report ---
EXAMINATION: CT of the abdomen and pelvis performed without contrast TECHNIQUE: Helical CT images from the lung bases through the symphysis pubis were obtained without contrast. Coronal and sagittal reformatted images were generated at a workstation for further assessment. Dose reduction techniques were achieved by using automatic exposure control and/or adjustment of mA and/or kV according to patient size and/or use of iterative reconstruction technique. COMPARISON: None HISTORY: Abdominal pain FINDINGS: Lower chest: No consolidation. No pleural effusion or pneumothorax. Liver: No suspicious liver lesions. Gallbladder: Subtle layering high attenuating material, may represent sludge or vicarious excretion of contrast, if given. No gallstones. No evidence of acute cholecystitis. Spleen: Normal size. Pancreas: No suspicious pancreatic lesions. The pancreatic duct is not dilated. Adrenal glands: No adrenal nodules. Kidneys: No hydronephrosis or obstructing renal stones. Bladder / Pelvic organs: Enlarged, gravid uterus. Mild fluid and air is seen at the anterior lower uterine segment from section. Expected postoperative inflammatory changes at the vesicouterine space.. Bowel: No bowel obstruction. No abnormal bowel wall thickening. The appendix is unremarkable. Lymph nodes: No retroperitoneal, mesenteric, or pelvic lymphadenopathy. Peritoneum / Retroperitoneum: No free fluid or air within the abdomen. Vessels: No infrarenal aortic aneurysm. Bones and soft tissues: No suspicious lesion in the bones. Low, transverse section scar noted associated with mild scattered postoperative air. No fluid collection associated. No hematoma or abscess. Small fat-containing umbilical hernia. IMPRESSION: Postoperative section changes, as above, without visualized complication. There is some subtle high attenuating material within the gallbladder that may represent sludge versus vicarious excretion of contrast, if given. Electronically signed by Asim Denise 07-11-2024 2:35 PM
[2024-07-12 00:21] VITALS: O2SAT 98
[2024-07-12 08:35] VITALS: BP 129/81; PULSE 74; TEMP 97.3
--- NOTE | 2024-07-12 09:23 | Obstetrical Progress Note ---
Date of Service July 12, 2024 Assessment & Plan (1) care and examination: Day 3 status post . Course complicated by postoperative ileus. Patient feeling significantly better today and is passing gas and has had several bowel movements. Is tolerating breakfast well and would like to be discharged today. Recommend that we continue to monitor at least through lunch and if doing well at lunch can proceed with discharge. Reviewed discharge instructions and recommendations. Subjective Ambulation: ambulating normally Voiding: no voiding problems Passing Gas:: Yes Diet Tolerance:: regular diet Lochia:: Moderate Denying calf tenderness/pain. Postoperative course complicated by ileus. Feeling better today and is passing gas and has had several bowel movements. Tolerating diet currently. Physical Exam Constitutional WD/WN, vitals as above Respiratory normal respiratory effort; no respiratory distress and no labored breathing Cardiovascular Extremities: no calf tenderness Gastrointestinal (Abdomen) Inspection/Auscultation: abdomen normal to inspection; abdomen not distended Percussion/Palpation: abdomen soft; abdomen nontender, no guarding and abdomen not rigid Incision clean, dry and intact. Genitourinary OB Exam Abdomen: + fundal height Fundus: + firm and + relation to umbilicus (Below); not tender or not boggy Results & Data Vital Signs (Past 12 Hours) Vital Signs Temp Pulse Resp BP Pulse Ox O2 Del Method 07/12/24 00:00 36.4 C L 71 16 129/82 98 Room Air
--- NOTE | 2024-07-12 09:24 | Billing Data ---
Date of Service July 12, 2024 Coding
== END 2024-07-12 13:30 | disposition home or self-care (01) | DRG 784 ==
LOC: OPB 21:03 → 4S1 21:04 → 4E2 07-09 05:34
PROC: M.PPTLD (2024-07-08 23:20)